=== PATIENT | female | born 1990 | race Caucasian/White ===

== ENCOUNTER 2018-06-08 09:16 | Emergency (ER) | payer OTHER ==
[2018-06-08 10:02] LABS: #Basophils 0.1 thou/uL (0.0-0.2); #Eosinphils 0.1 thou/uL (0.0-0.7); #Lymphocytes 1.8 thou/uL (1.20-3.40); #Monocytes 0.5 thou/uL (0.11-0.59); #Neutrophils 6.8 thou/uL (1.40-6.50); %Basophils 0.9 % (0.0-1.0); %Eosinophils 1.4 % (0.0-10.0); %Lymphocytes 19.6 % (21.0-51.0); %Monocytes 5.5 % (0.0-10.0); %Neutrophils 72.6 % (42.0-75.0); Hemoglobin 14.9 g/dL (12.0-16.0); Mean Corpuscular HGB CONC 32.8 g/dL (32.0-36.0); Mean Corpuscular Hemoglobin 30.9 pg (27.0-31.0); Mean Platelet Volume 7.2 fL (7.4-10.4); Platelet Count 334 thou/uL (130-400); RBC Distribution Width 11.6 % (11.5-14.5); Red Blood Cell (RBC) Count 4.82 mill/uL (4.20-5.40); White Blood Cell (WBC) Count 9.3 thou/uL (4.8-10.8)
[2018-06-08 10:13] LABS: Bilirubin Negative (Negative); Blood, Urine Negative (Negative); Clarity CLEAR (Clear); Glucose, Urine (Dipstick) Negative (Negative); Leukocyte Negative (Negative); Nitrite Negative (Negative); Protein, Urine (Dipstick) Negative (Neg-Trace); Specific Gravity, Urine 1.015 (1.002-1.036); Urobilinogen 0.2 mg/dL (0.2-1.0)
[2018-06-08 10:15] LABS: BHCG - Serum POSITIVE (NEGATIVE); Pregs Control Background? CLEAR/WHITE (CLR/WHITE); Pregs Control Bar Appear? YES (CONTROL BAR)
[2018-06-08 10:24] LABS: ALT (SGPT) 21 U/L (8-55); AST (SGOT) 11 U/L (5-34); Albumin 4.3 g/dL (3.5-5.0); Alkaline Phosphatase 80 U/L (40-150); Anion Gap 12 mmol/L (10-20); BUN (Urea Nitrogen) 9 mg/dL (7.0-18.7); Bilirubin, Total 0.5 mg/dL (0.2-1.2); Calc. Creatinine Clearance 0 mL/min (70-130); Calcium 9.5 mg/dL (7.8-10.44); Carbon Dioxide 22 mmol/L (22-29); Chloride 108 mmol/L (98-107); Estimated GFR-MDRD 85; Globulin 2.9 g/dL (2.4-3.5); Glucose 112 mg/dL (70-105); Potassium 4.5 mmol/L (3.5-5.1); Protein, Total 7.2 g/dL (6.0-8.3); Sodium 137 mmol/L (136-145)
[2018-06-08] MEDS ORDERED: Morphine 4 MG/ML VIAL ONE (10:43)
[2018-06-08] MEDS ORDERED: Ketorolac Tromethamine 30 MG/ML VIAL ONE (10:44)
--- NOTE | 2018-06-08 11:23 | ULT ---
ULTRASOUND PELVIC TRANSVAGINAL WITH DOPPLER: Date: 06/08/18 HISTORY: Left lower quadrant pain. COMPARISON: None. FINDINGS: There is an intrauterine gestational sac with a pole and a yolk sac. pole measures 0.26 c m. No heart tones are yet appreciated. The gestational sac mean sac diameter is 1.23 cm. The yo lk sac measures 0.27 cm. Adequate flow to both ovaries. Right ovary measures 2.2 x 2.2 x 1.6 cm. Left ovary measures 4.9 x 3.1 x 3.6 cm. There is a 2.8 cm left ovarian cyst. No significant free fluid in the pelvis. IMPRESSION: Intrauterine gestational sac with pole and a small yolk sac although no heart tones are yet zenaida reciated. This may reflect an early . Follow-up HCG and ultrasound is recommended. POS: FABIANA
== END 2018-06-08 11:04 | disposition home or self-care (01) ==
LOC: ERS 09:16
DX: O34.81 Maternal care for other abnormalities of pelvic organs, first trimester (principal); N83.202 Unspecified ovarian cyst, left side; O16.1 Unspecified maternal hypertension, first trimester; Z79.899 Other long term (current) drug therapy; Z3A.01 Less than 8 weeks gestation of pregnancy
CPT/HCPCS: 36415; 76856; 80053; 81003; 84702; 84703; 85025; J1885; J2270

== ENCOUNTER 2018-12-04 12:50 | Outpatient (CLI) | payer OTHER | END 2018-12-04 12:51 | disposition home or self-care (01) | LOC: ULT 12:50 | PROVIDERS: ATTEND Student in an Organized Health Care Education/Training Program | DX: I10 Essential (primary) hypertension (principal); I08.1 Rheumatic disorders of both mitral and tricuspid valves | CPT/HCPCS: 93306 ==

== ENCOUNTER 2019-01-18 10:55 | Inpatient (IN) | payer OTHER ==
[2019-01-18] MEDS ORDERED: hydrALAZINE 20 MG/ML VIAL SLOW IVP PRN (11:43)
[2019-01-18] MEDS ORDERED: Ibuprofen 800 MG TAB PO PRN (11:43)
[2019-01-18] MEDS ORDERED: Diphenoxylate HCl/Atropine Tablet PO PRN (11:43)
[2019-01-18] MEDS ORDERED: Carboprost 250 MCG/ML AMP IM PRN (11:43)
[2019-01-18] MEDS ORDERED: Butorphanol Tartrate 1 MG/ML VIAL SLOW IVP PRN (11:43)
[2019-01-18] MEDS ORDERED: HYDROcodone/Acetaminophen 5/325 mg Tablet PO PRN (11:43)
[2019-01-18] MEDS ORDERED: NS / Oxytocin 40 units/1000ml 1,000 ML IV PRN (11:43)
[2019-01-18] MEDS ORDERED: Lidocaine 1% (PF) 30 ML VIAL SC PRN (11:43)
[2019-01-18] MEDS ORDERED: Misoprostol 200 MCG TAB PR PRN (11:43)
[2019-01-18] MEDS ORDERED: Ondansetron PF 4 MG/2 ML Vial IVP PRN (11:43)
[2019-01-18] MEDS ORDERED: Acetaminophen 500 MG TAB PO PRN (11:43)
[2019-01-18] MEDS ORDERED: Promethazine HCl 25 MG/ML VIAL IM PRN (11:43)
[2019-01-18] MEDS ORDERED: Bupivacaine PF 0.5% 30 ML VIAL ONE (12:00)
[2019-01-18] MEDS ORDERED: Bupivacaine 0.25% HCL 30 ML VIAL ONE (12:00)
[2019-01-18 12:18] LABS: Hemoglobin 14.3 g/dL (12.0-16.0); Mean Corpuscular Hemoglobin 32.3 pg (27.0-31.0); Mean Corpuscular Volume 92.3 fL (78.0-98.0); Platelet Count 258 thou/uL (130-400); RBC Distribution Width 12.1 % (11.5-14.5); Red Blood Cell (RBC) Count 4.42 mill/uL (4.20-5.40); White Blood Cell (WBC) Count 13.5 thou/uL (4.8-10.8)
[2019-01-18 12:23] VITALS: BMI 40.7
[2019-01-18] MEDS: Lactated Ringer's 1,000 ML IV SCH (12:37)
[2019-01-18 12:50] LABS: ALT (SGPT) 21 U/L (8-55); AST (SGOT) 15 U/L (5-34); Albumin 3.7 g/dL (3.5-5.0); Alkaline Phosphatase 172 U/L (40-150); Anion Gap 13 mmol/L (10-20); BUN (Urea Nitrogen) 10 mg/dL (7.0-18.7); Bilirubin, Total 0.3 mg/dL (0.2-1.2); Calc. Creatinine Clearance 210 mL/min (70-130); Calcium 9.5 mg/dL (7.8-10.44); Carbon Dioxide 19 mmol/L (22-29); Chloride 109 mmol/L (98-107); Estimated GFR-MDRD Greater than 90; Globulin 2.6 g/dL (2.4-3.5); Glucose 80 mg/dL (70-105); Potassium 4.1 mmol/L (3.5-5.1); Protein, Total 6.3 g/dL (6.0-8.3); Sodium 137 mmol/L (136-145)
[2019-01-18 12:57] LABS: HBSAg Index 0.12 S/CO (0-0.99); Hep B Surf Ag Non-Reactive S/CO (NonReactive); Syphilis Antibody Nonreactive (Nonreactive); Syphilis Antibody Index 0.04 S/CO (<1.00 Non-Reactive)
[2019-01-18] MEDS: Misoprostol 100 MCG TAB VAG SCH ×3 (13:34→21:01)
--- NOTE | 2019-01-18 13:55 | PDOC.LDHP ---
Labor and Delivery H&P Chief complaint: scheduled induction HPI: 28yo at 37w5d by LMP here for IOL due to elevated blood pressures above baseline with hx of CHTN currently on amlodipine and hx of pulmonary stenosis, s /p 2 normal echos during and nl echo. Current gestational age (weeks): 37 Due date: 02/03/19 Dating criteria: last menstrual period Grav: 1 Para: 0 Current complications: gestational diabetes, preeclampsia without severe features Abnormal US findings: Yes (single umbilical artery) Past Medical History: CHTN on amlodipine, hx of pulmonary stenosis s/p nl echo x 2 this , nl echo as well. Current medications: pre- vitamins, other (amlodipine) Allergies/Adverse Reactions: Allergies Allergy/AdvReac Type Severity Reaction Status Date / Time cefprozil [From Cefzil] Allergy Verified 01/18/19 11:59 Social history: none - Physical Exam Vital signs reviewed and normal: yes Abnormal vital signs: mild range BP General: NAD Heart: RRR Lungs: CTAB Abdomen: gravid Extremeties: no edema FHT: category 1 [place] contractions every: none - Vaginal Exam cm dilated: 1 Effacement: 25% Station: -3 - OB Labs Blood type: A RH: positive Antibody Screen: negative HIV: negative RPR: negative HEPSAg: negative 1 hour GCT: positive 3 hour GTT: positive for GDM GBS: negative Urine drug screen: negative Rubella: immune - Assessment L&D Assessment: medically indicated induction - Plan Plan: admit to L&D, cervical ripening, labor augmentation if indicated, informed consent obtained, anesthesia consult for pain management -: PIH labs wnl, no sx PIH, BP mild, cont amlodipine, Mag for severe features GDM- accuchecks q4hr
[2019-01-18 14:31] LABS: Bacteria/HPF None Seen HPF (None Seen); Bilirubin Negative (Negative); Blood, Urine 1+ (Negative); Clarity Clear (Clear); Glucose, Urine (Dipstick) Normal (Negative); Leukocyte Negative Leu/uL (Negative); Nitrite Negative (Negative); Protein, Urine (Dipstick) Negative (Neg-Trace); RBC/HPF 0-3 HPF (0-3); Squamous Epithelial 0-3 HPF (0-3); Urobilinogen Normal mg/dL (Less than 2); WBC/HPF 0-3 HPF (0-3)
[2019-01-19] MEDS: Misoprostol 100 MCG TAB VAG SCH ×5 (01:39→22:38)
[2019-01-19] MEDS: Lactated Ringer's 1,000 ML IV SCH ×4 (06:14→22:38)
[2019-01-19] MEDS: NS w/ Oxytocin 10 units 500 ML IV SCH ×2 (06:15→16:09)
--- NOTE | 2019-01-19 09:05 | PDOC.LDPN ---
Labor & Delivery Progress Note - Subjective Subjective: comfortable - Objective Vital signs reviewed and normal: yes General: NAD Uterine fundus: non tender Dilation: 3 Effacement: 50% Station: -3 FHT: category 1 [place] contractions every: 3-5min AROM: clear fluid Plan: pitocin for augmentation, other (CHTN- BP nl-mild, no sx pih, labs wnl, cont amlodipine, mag for severe features. ) -: GDM- accuchecks wnl, clear liquids prn BG <90
[2019-01-19] MEDS: Amlodipine 10 MG TAB PO SCH (11:03)
[2019-01-19] MEDS ORDERED: Fentanyl 4 mcg/Bup 0.1% Cadd 100 ML ONE ×2 (11:33→19:15)
[2019-01-19] MEDS ORDERED: Fentanyl 100 MCG/2 ML VIAL ONE (11:53)
[2019-01-19] MEDS ORDERED: Fentanyl 100 MCG/2 ML VIAL EPIDURAL ONE (12:15)
[2019-01-19] MEDS ORDERED: Acetaminophen 325 MG TAB PO PRN (13:20)
[2019-01-19] MEDS ORDERED: Lactated Ringer's 500 ML IV PRN (13:20)
[2019-01-19] MEDS ORDERED: Promethazine HCl 25 MG/ML VIAL IM PRN (13:20)
[2019-01-19] MEDS ORDERED: Ondansetron PF 4 MG/2 ML Vial IVP PRN (13:20)
[2019-01-19] MEDS ORDERED: Naloxone HCl 0.4 mg/ml Vial IVP PRN ×2 (13:20)
[2019-01-19] MEDS ORDERED: ePHEDrine/0.9% NaCl/PF SYRINGE 50 mg/10 ml SLOW IVP PRN (13:20)
[2019-01-19] MEDS ORDERED: diphenhydrAMINE 50 MG/ML VIAL IVP PRN (13:20)
[2019-01-19] MEDS ORDERED: Communication Order-Pharmacy FS SCH (13:30)
[2019-01-19] MEDS ORDERED: Fentanyl 4 mcg/Bupivacaine 0.1% Cassette 100 ML EPIDURAL SCH (13:30)
[2019-01-19] MEDS ORDERED: Calcium Carbonate 500 MG ChewTAB PO SCH (18:30)
[2019-01-20] MEDS ORDERED: Fentanyl 4 mcg/Bup 0.1% Cadd 100 ML ONE ×2 (00:48→06:36)
[2019-01-20] MEDS: Misoprostol 100 MCG TAB VAG SCH ×4 (01:06→10:14)
[2019-01-20] MEDS ORDERED: Ondansetron PF 4 MG/2 ML Vial IVP PRN ×2 (01:14→10:32)
[2019-01-20] MEDS ORDERED: NS / Oxytocin 40 units/1000ml 1,000 ML ONE (04:08)
[2019-01-20] MEDS ORDERED: Lidocaine 1% (PF) 30 ML VIAL ONE (04:08)
[2019-01-20] MEDS: Lactated Ringer's 1,000 ML IV SCH (06:52)
--- NOTE | 2019-01-20 09:02 | PDOC.OPDEL ---
OB Operative/Delivery Note Delivery Dr/Surgeon: Anais, PGY 3 Assist: Benji Pre-Delivery Diagnosis: medically indicated induction (CHTN, GDM, SUA) Procedure/Post Delivery Dx: spontaneous vaginal delivery Weeks gestation: 38 Anesthesia: epidural - Findings A Sex: male - 1 min: 5 - 5 min: 9 - Additional Findings/Plan Placenta delivered: spontaneous Repaired Obstetrical Laceration: 1st degree Estimated blood loss: 50cc Post delivery plan: routine recovery
[2019-01-20] MEDS ORDERED: NS / Oxytocin 40 units/1000ml 1,000 ML IV SCH (10:32)
[2019-01-20] MEDS ORDERED: HYDROcodone/Acetaminophen 5/325 mg Tablet PO PRN ×2 (10:32)
[2019-01-20] MEDS ORDERED: Lanolin Ointment 7 GM TUBE TOP PRN (10:32)
[2019-01-20] MEDS ORDERED: Benzocaine-Menthol 82.5 ML CAN TOP PRN (10:32)
[2019-01-20] MEDS ORDERED: hydrALAZINE 20 MG/ML VIAL SLOW IVP PRN (10:32)
[2019-01-20] MEDS ORDERED: Milk Of Magnesia 30 ML UDCUP PO PRN (10:32)
[2019-01-20] MEDS ORDERED: Bisacodyl 10 MG SUPP PR PRN (10:32)
[2019-01-20] MEDS ORDERED: Preparation H Ointment 28 GM TUBE PR PRN (10:32)
[2019-01-20] MEDS ORDERED: Promethazine HCl 25 MG/ML VIAL IM PRN (10:32)
[2019-01-20] MEDS ORDERED: diphenhydrAMINE 25 MG CAP PO PRN (10:32)
[2019-01-20] MEDS ORDERED: Docusate Calcium (SURFAK) 240 MG CAP PO SCH (10:45)
[2019-01-20] MEDS ORDERED: Prenatal Vitamin 1 TAB PO SCH (10:45)
[2019-01-20] MEDS: Ibuprofen 800 MG TAB PO SCH ×2 (11:05→21:20)
[2019-01-20] MEDS: Amlodipine 10 MG TAB PO SCH (11:33)
[2019-01-20] MEDS ORDERED: Adacel (T-DAP) 0.5 ML SYRINGE IM ONE (15:00)
[2019-01-20] MEDS: Ferrous Sulfate 325 MG TAB PO SCH (18:39)
[2019-01-20] MEDS: Docusate Calcium (SURFAK) 240 MG CAP PO SCH (21:20)
[2019-01-21] MEDS: Ibuprofen 800 MG TAB PO SCH ×3 (05:12→21:32)
--- NOTE | 2019-01-21 05:38 | PDOC.PP ---
Post Progress Note Post Day #: PPD1 Subjective: Resting, no c/o. PO intake tolerated: yes Ambulation: yes Vital Signs (12 hours) Temp Pulse Resp BP Pulse Ox 01/21/19 00:45 98.0 F 98 18 129/59 L 01/20/19 21:15 98.0 F 95 18 141/66 H 98 Weight Weight 117.934 kg - Physical Examination General: NAD Respiratory: non-labored breathing Abdominal: no distention Extremities: negative homans (B) Neurological: no gross focal deficits Psychiatric: normal affect Result Diagrams: 01/18/19 12:06 01/18/19 12:06 Additional Labs: Post Labs Blood Type A POSITIVE 01/18/19 14:26 Hep Bs Antigen Non-Reactive S/CO (NonReactive) 01/18/19 12:06 - Assessment/Plan Doing well. Routine PP care.
[2019-01-21] MEDS ORDERED: Preparation H Ointment 57 gram tube RC PRN (05:44)
[2019-01-21] MEDS: Prenatal Vitamin 1 TAB PO SCH (09:08)
[2019-01-21] MEDS: Amlodipine 10 MG TAB PO SCH (09:08)
[2019-01-21] MEDS: Docusate Calcium (SURFAK) 240 MG CAP PO SCH ×2 (09:10→21:33)
[2019-01-21] MEDS: Ferrous Sulfate 325 MG TAB PO SCH ×2 (09:10→16:46)
[2019-01-22] MEDS: Ibuprofen 800 MG TAB PO SCH ×2 (05:08→15:04)
[2019-01-22] MEDS: Ferrous Sulfate 325 MG TAB PO SCH (07:15)
[2019-01-22 08:01] VITALS: BP 127/61; TEMP 98
--- NOTE | 2019-01-22 08:12 | PDOC.PP ---
Post Progress Note Post Day #: 2 PO intake tolerated: yes Flatus: yes Ambulation: yes Vital Signs (12 hours) Temp Pulse Resp BP Pulse Ox 01/22/19 08:00 98.0 F 74 20 127/61 97 01/22/19 00:10 98.1 F 84 18 128/60 Weight Weight 260 lb - Physical Examination General: NAD Respiratory: non-labored breathing Abdominal: no distention, appropriately TTP Fundus firm & at: umb Extremities: negative homans (B) Neurological: no gross focal deficits Psychiatric: normal affect Result Diagrams: 01/18/19 12:06 01/18/19 12:06 Additional Labs: Post Labs Blood Type A POSITIVE 01/18/19 14:26 Hep Bs Antigen Non-Reactive S/CO (NonReactive) 01/18/19 12:06 - Assessment/Plan PPD2 s/p TSVD VSSAF Doing well lochia < menses CHTN BP nl no sx PIH on norvasc Rh pos RImm DC home FU 6w
[2019-01-22] MEDS: Amlodipine 10 MG TAB PO SCH (09:06)
[2019-01-22] MEDS: Prenatal Vitamin 1 TAB PO SCH (09:06)
[2019-01-22] MEDS: Docusate Calcium (SURFAK) 240 MG CAP PO SCH (09:07)
== END 2019-01-22 15:40 | disposition home or self-care (01) | DRG 807 ==
LOC: L&D 10:55 → 3SW 01-20 14:59
PROVIDERS: ADMIT Student in an Organized Health Care Education/Training Program; ATTEND Student in an Organized Health Care Education/Training Program
PROC: 10E0XZZ Delivery of Products of Conception, External Approach (ICD-10-PCS; principal; 2019-01-20)
PROC: 3E033VJ Introduction of Other Hormone into Peripheral Vein, Percutaneous Approach (ICD-10-PCS; 2019-01-20)
PROC: 0HQ9XZZ Repair Perineum Skin, External Approach (ICD-10-PCS; 2019-01-20)
PROC: 10907ZC Drainage of Amniotic Fluid, Therapeutic from Products of Conception, Via Natural or Artificial Opening (ICD-10-PCS; 2019-01-20)
PROC: 3E0P7VZ Introduction of Hormone into Female Reproductive, Via Natural or Artificial Opening (ICD-10-PCS; 2019-01-20)
DX: O11.4 Pre-existing hypertension with pre-eclampsia, complicating childbirth (principal); Z37.0 Single live birth; O24.429 Gestational diabetes mellitus in childbirth, unspecified control; O70.0 First degree perineal laceration during delivery; Z3A.38 38 weeks gestation of pregnancy
CPT/HCPCS: 36415; 36416; 51702; 80053; 81001; 85027; 86780; 86850; 86900; 86901; 87340; 88307; J2001; J2405; J2590; J3010; S0020